=== PATIENT | male | born 1985 | race Caucasian/White ===

== ENCOUNTER 2018-07-05 14:55 | Outpatient (CLI) | payer OTHER ==
--- NOTE | 2018-07-06 16:17 | MRI Report ---
Reason: PAIN IN RIGHT KNEE Procedure Date: 07/05/2018 Accession Number: [id number] / [id number] Procedure: MRI - Knee RT W/O CPT Code: FULL RESULT: EXAM: RIGHT KNEE MRI WITHOUT CONTRAST EXAM DATE: 07/05/2018 03:39 PM. CLINICAL HISTORY: Pain in right knee. COMPARISON: None. TECHNIQUE: Multiplanar, multisequence T1-weighted and fluid-sensitive sequences of the knee without contrast. Other: None. FINDINGS: Bones: No fracture. Small region of bone marrow edema at the posteromedial aspect medial femoral condyle. Articular Cartilage: Evaluation of the cartilage at the posteromedial aspect medial femoral condyle limited due to obliquity of the scan planes. Possible small region of deep partial to full-thickness cartilage loss overlying this site measuring 0.6 cm transverse. Shallow partial-thickness fissuring/tearing at the median ridge of the patella. Medial Meniscus: Peripheral vertical tear at the posterior horn with a lobulated 1.7 cm parameniscal cyst extending proximally. Lateral Meniscus: Mild blunting at the free edge anterior horn. Possible flipped fragment versus scar along the superior aspect anterior horn (sagittal images 19). Cruciate Ligaments: The anterior and posterior cruciate ligaments are intact. Collateral Ligaments: The medial collateral and lateral collateral ligamentous structures are intact. Tendons: Mild quadriceps tendinopathy. Possible subtle undersurface tear at the insertion medial fibers. Patellar, popliteus, and semimembranosus tendons unremarkable. Musculature: No edema or fatty atrophy. Other: Small joint effusion. 1.3 x 1.2 x 0.5 cm linear filling defect present along the deep aspect of Hoffa's fat pad. This demonstrates T1 and fluid sensitive hypointense signal centrally with isointense to hyperintense signal peripherally. No popliteal cyst. The medial and lateral retinacula are intact. Minimal subcutaneous edema anteriorly. Mild edema in the suprapatellar fat pad. Postsurgical changes in Hoffa's fat pad. IMPRESSION: 1. Peripheral vertical tear at the posterior horn medial meniscus with a parameniscal cyst. 2. Postsurgical change versus a radial tear at the free edge anterior horn lateral meniscus. Linear flipped fragment versus scar along the superior articular surface. 3. 1.3 cm linear filling defect along the deep aspect of Hoffa's fat pad, concerning for osteochondral fragment. 4. Possible osteochondral lesion versus reactive edema at the far posteromedial aspect medial femoral condyle. 5. Small joint effusion. 6. Mild quadriceps tendinopathy with a possible subtle undersurface tear at the medial insertion. [facility] MUSCULOSKELETAL RADIOLOGY SECTION
== END 2018-07-05 14:56 | disposition home or self-care (01) ==
LOC: DI 14:55
PROVIDERS: ATTEND Anesthesiology Pain Medicine
DX: S83.241A Other tear of medial meniscus, current injury, right knee, initial encounter (principal); M67.961 Unspecified disorder of synovium and tendon, right lower leg; M25.461 Effusion, right knee